=== PATIENT | male | born 1940 | race Caucasian/White ===

== ENCOUNTER 2020-01-21 13:28 | Inpatient (IN) ==
[2020-01-21] MEDS ORDERED: NORMAL SALINE 1,000 ML IV ONE (13:59)
--- NOTE | 2020-01-21 14:10 | ERNOTE ---
Trauma/Assault HPI - Narrative Date of Service: 01/21/20 - General Stated Complaint: fall Time Seen by Provider: 01/21/20 13:43 Source: patient Exam Limitations: no limitations, other - poor historian - Immun/Allergies/Home Medications Immunizations: IMMUNIZATION HX Immunizations Up to Date Yes Allergies/Adverse Reactions: Allergies No Known Allergies Allergy (Unverified 01/21/20 13:44) - History of Present Illness Narrative: Patient presents to the ED for right leg pain after a fall. He missed the 5th step on a set of stairs and went right down on his right knee. Immediate pain right thigh. No head injury. No neck pain. No CP or SOB. No syncope or LOC or head injury. Mild right elbow pain. No focal weakness. Has not had anything like this before. Pain worse with movement. Location Occurred: Reports: other - stairs Pain Location: Reports: other - right thigh Method of Injury: Reports: fall Modifying Factors - (Improves): Reports: rest Modifying Factors - (Worsens): Reports: movement Loss of Consciousness: Reports: no loss of consciousness Associated Symptoms - Trauma: Reports: trouble walking. Denies: headache, lightheadedness, chest pain, abdominal pain Review of Systems - Review of Systems Constitutional: Absent: fever EYE: Present: no symptoms reported ENT: Absent: sore throat Respiratory: Present: other - on 3L NC chronically Cardiology: Absent: chest pain Gastrointestinal/Abdominal: Absent: abdominal pain Genitourinary: Absent: dysuria Musculoskeletal: Present: See HPI Neurological: Present: other - pain limits this but no focal weakness All Other Systems: All systems neg except as marked Medical History (Last Reviewed 01/21/20 @ 14:06 by Lopez Tang MD) History of COPD Poor historian Surgical History: Surgical History (Last Reviewed 01/21/20 @ 14:06 by Lopez Tang MD) Surgical history unknown Family History: Family History (Last Reviewed 01/21/20 @ 14:06 by Lopez Tang MD) Other No pertinent family history Social History: (Last Reviewed 01/21/20 @ 14:06 by Lopez Tang MD) Social History: Service: Yes Physical Exam - Physical Exam General Appearance: Present: alert, no apparent distress Head Exam: Present: normal inspection, no evidence of injury. Absent: Land's Sign, raccoon eyes Eye Exam: Normal inspection: bilateral, PERRL: bilateral Ears, Nose, Throat: Present: normal ENT inspection Neck: Present: normal inspection, nontender, other - absolutely no tendenress posterior C-spine. Absent: tender posterior midline Respiratory: Present: no respiratory distress, normal breath sounds, no accessory muscle use, lungs clear. Absent: wheezing Cardiovascular/Chest: Present: regular rate, rhythm, normal peripheral pulses Gastrointestinal/Abdominal: Present: normal bowel sounds, nontender, nondistended, soft Back Exam: Absent: vertebral tenderness Extremity Exam: Present: other - Tendenress right hip and thigh. Abrasion left knee. Mild tenderness right elbow with skin tear. Full ROM. No other point bone tenderness. Neurological Exam: Present: alert, no motor/sensory deficits, other - pain limits exam, no acute focal motor tenderness. Skin Exam: Present: normal color, warm/dry, other - abrasoins/skin tear as no virgil. Progress - Results and Orders Patient's Lab Results:: I have reviewed the patient's lab results. - Vital Signs Patient's Vital Signs:: I have reviewed the patient's vital signs. Vital Signs: Vital Signs 01/21/20 13:35 Temperature 37.2 C Pulse Rate 90 Respiratory Rate 16 Blood Pressure 142/49 O2 Sat by Pulse Oximetry 92 L - EKG EKG #1 EKG read: Interp. by az EKG Comments: Sinus tachycardia rate 101. Non-specific ST/T wave changes , no STEMI. - X-Ray X-Ray #1 X-Ray: chest Interpretation: Interp. by me X-ray Comments: I personally reviewed CXR image as well as official radiology report. X-Ray #2 X-Ray: femur Interpretation: Interp. by me X-ray Comments: I personally reviewed femur image as well as official radiology report. X-Ray #3 X-Ray: elbow Interpretation: Interp. by me X-ray Comments: I personally reviewed elbow images as well as official radiology report. - CT/Ultrasound CT/Ultrasound Narrative: I reviewed official radiology report for CT head and chest - Progress/Reassessment Chief Complaint: Fall Progress Note-Subjective: 01/21/20 17:14 Patient had some confusion, unclear chronicity, with the fall, head CT obtained. He also had incerased oxygen requirement and had increased resp rate, after discussion with Dr Raymundo, he will have CTA chest as well to r/o PE or fat embolism. 01/21/20 18:38 Dr Raymundo saw the patient in the ED. There was question at that time if transfer to [facility] at request of was going to happen. I spoke to the patient's . They live in [place] and for convenience were wondering about transfer to [place]. She had heard the Dr Stevens was a very good orthopedist and was more amenable to surgery here then skilled in [place] if possible. Patient had some increased WOB after morphine but no allergic symptoms. CT shows no PE or fat embolism of size but findings c/w interstitial edema. BNP wnl. Bipap was given to ease WOB. Departure Clinical Impression: Fall, Hip fracture, right, Elbow injury, Abrasion, On home oxygen therapy, COPD (chronic obstructive pulmonary disease) - Departure Disposition: Still a patient Condition: Fair Critical Care Time - Critical Care Critical Time Spent:: No
[2020-01-21 14:28] LABS: Hemoglobin 14.1 gm/dL (13.5-18.0); Mean Cell Volume 96.6 fl (78-100); Mean Corpuscular Hemoglobin 31.7 pg (27-31); Mean Corpuscular Hgb Conc 32.8 g/dl (32-36); Mean Platelet Volume 10.2 fl (8-11.3); Neutrophil # 6.2 K/mm3 (1.3-6.0); Neutrophil % 80.7 % (42-75.0); Platelet Count 280 K/mm3 (150-450); Red Blood Count 4.45 M/mm3 (4.7-6.0); Red Cell Distribution Width 12.9 % (11.5-14.0); White Blood Count 7.7 K/mm3 (4.0-10.5)
[2020-01-21 14:50] LABS: Prothrombin Time (Patient) 10.6 Seconds (9.1-10.7)
[2020-01-21 14:51] LABS: Albumin * 3.4 gm/dl (3.4-5.0); Anion Gap 6.9 mmol/L (6.8-13.8); Ca. Corrected For Albumin 9.3 mg/dL (8.4-10.2); Calcium * 9.1 mg/dL (7.9-10.9); Carbon Dioxide 31.7 mmol/L (24-32.6); INR 1.07 INR (0.92-1.08); Partial Thrombolplastin Time 27.5 Seconds (24-32); Potassium 3.6 mmol/L (3.4-4.6); Total Protein 6.8 gm/dL (6.2-8.2)
[2020-01-21 16:31] LABS: Urine Bilirubin 1 mg/dl (NEGATIVE); Urine Blood Negative /ul (NEGATIVE); Urine Ketone Negative (NEGATIVE); Urine Nitrite Negative (NEGATIVE); Urine Protein Negative (NEGATIVE); Urine Specific Gravity 1.025 SP.GR. (1.005-1.030); Urine Urobilinogen Normal (NORMAL)
[2020-01-21] MEDS ORDERED: MORPHINE SULFATE 2 MG/ML DISP.SYRIN IV ONE (16:48)
[2020-01-21 17:03] LABS: Urine Appearance Clear (CLEAR); Urine Color Dark Yellow; Urine RBC TRACE /hpf (0-5); Urine WBC TRACE /hpf (0-5)
[2020-01-21 17:04] LABS: Urine Bacteria 1+; Urine Mucus Few - 1+
[2020-01-21] MEDS ORDERED: MORPHINE SULFATE 4 MG/ML SYRG IV PRN (22:27)
[2020-01-21] MEDS ORDERED: ONDANSETRON HCL/PF 2 MG/ML VIAL IV PRN (22:28)
--- NOTE | 2020-01-21 22:47 | HP ---
Chief Complaint - Chief Complaint Date of Service: 01/21/20 Time of Service: 18:00 Chief Complaint: fall, hip pain History of Present Illness: Kali is an 79 yo male with Chronic respiratory failure secondary to COPD on 3lpm of continuous oxygen. He was walking on stairs and tripped on the 5th one, landing on his right knee and immediately having right hip pain. He was brought to the [facility] ER where he was found to have a right femur fracture. Imaging of right elbow, chest, and head showed no acute changes. On his usual 3lpm of oxygen he was having hypoxia and he was increased to bipap. CT of chest showed no pulmonary embolism, no infiltrates, but potential pulmonary congestion. COVID was negative. He reports taking nebulizers at home and prior to the fall he was doing well medically. He denies shortness of breath, cough, o r fever. No chest pain, dizziness, or lightheadness. He recalls catching his foot on the stairs and tripping. Medical History (Last Reviewed 01/22/20 @ 09:03 by Mateo Rangel CRNA) History of COPD Poor historian Surgical History: Surgical History (Last Reviewed 01/22/20 @ 09:03 by Mateo Rangel CRNA) Hx of appendectomy Hx of hernia repair Family History: Family History (Last Reviewed 01/22/20 @ 09:03 by Mateo Rangel CRNA) Mother Diabetes CHF (congestive heart failure) Father Diabetes Other No pertinent family history Social History: (Last Updated 01/21/20 @ 20:58 by Salima Eagle RN) Social History: adopted: No foster care: No half-way: No Marital status: household members: spouse Service: Yes Tobacco: Smoking Status: Former smoker tobacco type: cigarettes Smoking End Date: 02/11/11 Smoking risk assessment performed?: No Alcohol: alcohol intake: former Substance Use: substance use type: does not use Review Of Systems (GEN) - Review of Systems Generalized/Overall Review: Absent: Weakness, Chills, Fever, Fatigue EENTM: Present: No Symptoms Reported Respiratory: Absent: Cough, Shortness of Breath, Wheezing Cardiac: Absent: Chest Pain, Edema, Palpitations Abdominal: Absent: Nausea, Vomiting Genitourinary: Present: No Symptoms Reported Musculoskeletal: Present: Joint Pain Neurological: Present: No Symptoms Reported Skin: Present: No Symptoms Reported Endocrine: Present: No Symptoms Reported Immunizations: IMMUNIZATION HX Immunizations Up to Date Yes Allergies/Adverse Reactions: Allergies Allergy/AdvReac Type Severity Reaction Status Date / Time No Known Allergies Allergy Unverified 01/21/20 13:44 Home Medications: HOME MEDICATIONS Atorvastatin Calcium [Lipitor] 20 mg PO DAILY 01/22/20 [Last Taken Unknown] Cetirizine HCl 10 mg PO DAILY PRN 01/22/20 [Last Taken Unknown] Fluticasone/Vilanterol [Breo Ellipta 200-25 Mcg INH] 1 ea IH DAILY 01/22/20 [Last Taken Unknown] Montelukast Sodium 10 mg PO HS 01/22/20 [Last Taken Unknown] Nystatin [Mycostatin (Nystatin) Cream] 30 gm TP BID 01/22/20 [Last Taken Unknown] Triamcinolone Acetonide 15 gm TP BID 01/22/20 [Last Taken Unknown] Umeclidinium [place] [Incruse Ellipta] 62.5 mcg IH DAILY 01/22/20 [Last Taken Unknown] Exam - Exam Vital Signs: Vital Signs - Last Taken Temp 37.5 C 01/21/20 20:06 Pulse 97 01/21/20 21:43 Resp 25 H 01/21/20 21:43 BP 114/62 01/21/20 20:06 Pulse Ox 92 L 01/21/20 21:43 Constitutional: Present: Alert, Oriented x3, Cooperative ENT Exam: Present: hearing grossly normal Eye Exam: bilateral eye: normal inspection Respiratory: Present: lungs clear, no respiratory distress Cardiovascular/Chest: Present: regular rate, rhythm, no murmur Peripheral Pulses: radial (R): 2+, radial (L): 2+ Abdomen: Present: Normal bowel sounds, soft, nontender, nondistended Extremity: Absent: lower extremity edema Skin Exam: Present: normal color, warm/dry, no cyanosis Neurologic: Present: alert, normal mood/affect, oriented x 3, other - Soft spoken and a little hard to hear, but he carries appropriate conversation Appearance: Present: appropriate appearance, appropriate insight Eye contact: Present: cooperative, good eye contact Thoughts: Present: normal thought pattern, no apparent hallucination Diagnostic Studies: Abnormal Lab Results 01/21/20 01/21/20 01/21/20 Range/Units 14:21 16:12 16:45 RBC 4.45 L (4.7-6.0) M/mm3 MCH 31.7 H (27-31) pg Neutrophils % 80.7 H (42-75.0) % Lymphocytes % 8.8 L (20-51) % Neutrophils # 6.2 H (1.3-6.0) K/mm3 Lymphocytes # 0.68 L (1.5-3.5) k/mm3 pCO2 54.7 H (35.0-48.0) mmHg pO2 56.9 L (83.0-108.0) mmHg HCO3 28.7 H (21.0-28.0) mmol/L Total CO2 30.4 H (19.0-24.0) mmol/L ABG pH 7.34 L (7.35-7.45) ABG O2 Sat (Measured) 87.4 L (94.0-98.0) % Urine Bilirubin 1 H (NEGATIVE) mg/dl Urine Bacteria 1+ H (NONE) Urine Mucus Few - 1+ H (NONE) Laboratory Results WBC 7.7 K/mm3 (4.0-10.5) 01/21/20 14:21 RBC 4.45 M/mm3 (4.7-6.0) L 01/21/20 14:21 Hgb 14.1 gm/dL (13.5-18.0) 01/21/20 14:21 Hct 43.0 % (42.0-52.0) 01/21/20 14:21 MCV 96.6 fl (78-100) 01/21/20 14:21 MCH 31.7 pg (27-31) H 01/21/20 14:21 MCHC 32.8 g/dl (32-36) 01/21/20 14:21 RDW 12.9 % (11.5-14.0) 01/21/20 14:21 Plt Count 280 K/mm3 (150-450) 01/21/20 14:21 MPV 10.2 fl (8-11.3) 01/21/20 14: Immature Gran % (Auto) 0.30 % (0.001-0.429) 01/21/20 14:21 Immature Gran # (Auto) 0.02 K/mm3 (0.000-0.0310) 01/21/20 14:21 Neutrophils % 80.7 % (42-75.0) H 01/21/20 14:21 Lymphocytes % 8.8 % (20-51) L 01/21/20 14:21 Monocytes % 7.1 % (0.0-9) 01/21/20 14:21 Eosinophils % 2.7 % (0.0-3.0) 01/21/20 14:21 Basophils % 0.4 % (0.0-1.0) 01/21/20 14:21 Nucleated RBC % 0.0 k/mm3 (0-1) 01/21/20 14:21 Neutrophils # 6.2 K/mm3 (1.3-6.0) H 01/21/20 14:21 Lymphocytes # 0.68 k/mm3 (1.5-3.5) L 01/21/20 14:21 Monocytes # 0.6 k/mm3 (0.0-1.0) 01/21/20 14:21 Eosinophils # 0.2 k/mm3 (0.0-0.7) 01/21/20 14:21 Absolute Basophils 0.0 k/mm3 (0.0-0.1) 01/21/20 14:21 PT 10.6 Seconds (9.1-10.7) 01/21/20 14:21 INR (Anticoag Therapy) 1.07 INR (0.92-1.08) 01/21/20 14:21 PTT ([place]) 27.5 Seconds (24-32) 01/21/20 14:21 pCO2 54.7 mmHg (35.0-48.0) H 01/21/20 16:45 pO2 56.9 mmHg (83.0-108.0) L 01/21/20 16:45 HCO3 28.7 mmol/L (21.0-28.0) H 01/21/20 16:45 Total CO2 30.4 mmol/L (19.0-24.0) H 01/21/20 16:45 Base Excess 1.6 mmol/L (-2.0-3.0) 01/21/20 16:45 ABG pH 7.34 (7.35-7.45) L 01/21/20 16:45 ABG O2 Sat (Measured) 87.4 % (94.0-98.0) L 01/21/20 16:45 Sodium 141 mmol/L (132-142) 01/21/20 14:21 Plasma Sodium 141 mmol/L (130-142) 01/21/20 14:21 Potassium 3.6 mmol/L (3.4-4.6) 01/21/20 14:21 Chloride 106 mmol/L (97-106) 01/21/20 14:21 Carbon Dioxide 31.7 mmol/L (24-32.6) 01/21/20 14:21 Anion Gap 6.9 mmol/L (6.8-13.8) 01/21/20 14:21 BUN 12 mg/dL (6-23) 01/21/20 14:21 Creatinine 0.86 mg/dL (0.4-1.4) 01/21/20 14:21 Est GFR (Non-Af Amer) 91 mL/min (60-130) 01/21/20 14:21 BUN/Creatinine Ratio 14.0 (9.0-21.6) 01/21/20 14:21 Random Glucose 103 mg/dL (70-110) 01/21/20 14:21 Calcium 9.1 mg/dL (7.9-10.9) 01/21/20 14:21 Calcium Adj for Albumin 9.3 mg/dL (8.4-10.2) 01/21/20 14:21 Total Bilirubin 1.0 mg/dL (0.0-1.1) 01/21/20 14:21 AST 23 U/L (0-48) 01/21/20 14:21 ALT 25 U/L (19-67) 01/21/20 14:21 Alkaline Phosphatase 143 U/L (50-170) 01/21/20 14:21 Troponin I Less than 0.017 ng/mL (0.00-0.10) 01/21/20 14:20 B-Natriuretic Peptide 273 pg/mL (5-650) 01/21/20 14:20 Total Protein 6.8 gm/dL (6.2-8.2) 01/21/20 14:21 Albumin 3.4 gm/dl (3.4-5.0) 01/21/20 14:21 Urine Color Dark yellow 01/21/20 16:12 Urine Appearance Clear (CLEAR) 01/21/20 16:12 Urine pH 6.0 pH (5.0-7.0) 01/21/20 16:12 Ur Specific [place] 1.025 SP.GR. (1.005-1.030) 01/21/20 16:12 Urine Protein Negative mg/dL (NEGATIVE) 01/21/20 16:12 Urine Glucose (UA) Negative mg/dL (NEGATIVE) 01/21/20 16:12 Urine Ketones Negative mg/dL (NEGATIVE) 01/21/20 16:12 Urine Blood Negative /ul (NEGATIVE) 01/21/20 16:12 Urine Nitrate Negative (NEGATIVE) 01/21/20 16:12 Urine Bilirubin 1 mg/dl (NEGATIVE) H 01/21/20 16:12 Urine Ictotest Negative (NEGATIVE) 01/21/20 16:12 Urine Urobilinogen Normal EU/dl (NORMAL) 01/21/20 16:12 Ur Leukocyte Esterase Negative /ul (NEGATIVE) 01/21/20 16:12 Urine RBC Trace /hpf (0-5) 01/21/20 16:12 Urine WBC Trace /hpf (0-5) 01/21/20 16:12 Ur Epithelial Cells Trace /hpf (0-5) 01/21/20 16:12 Urine Bacteria 1+ (NONE) H 01/21/20 16:12 Urine Mucus Few - 1+ (NONE) H 01/21/20 16:12 Urine Culture Comments No culture indicated 01/21/20 16:12 SARS-CoV-2 (PCR) Not detected (NotDetected) 01/21/20 15:00 Assessment/Plan - Narrative Narrative: Kali is an 79 yo male with right hip fracture. Fracture was discussed with ortho who reviewed the fracture and recommend surgery. From a pulmonary standpoint he is at a higher risk for surgery due to his COPD and chronic respiratory failure. Chest xray and Chest CT show no acute changes. He is requiring more oxygen then he reportedly uses at home. This may be from atelectasis. Will continue bipap overnight and wean to home oxygen levels in the morning. May need duoneb treatments. He is alert and oriented, although difficult to hear at times he has appropriate conversation. Discussing his case with surgery he will not need general anesthesia, with this I agree, as he may be high risk coming off of a vent. As this will not be used I believe he is medically clear for surgery. I believe the patient understands the risks and is in agreement with surgery. - Assessment/Plan (1) Hip fracture, right Problem: Acute Qualifiers: Encounter type: initial encounter Fracture type: closed Qualified Code (s): S72.001A - Fracture of unspecified part of neck of right femur, initial encounter for closed fracture (2) Acute and chronic respiratory failure Problem: Acute Qualifiers: Respiratory failure complication: hypoxia Qualified Code(s): J96.21 - Acute and chronic respiratory failure with hypoxia (3) Fall Problem: Acute (4) COPD (chronic obstructive pulmonary disease) Problem: Chronic Qualifiers: COPD type: emphysema Emphysema type: unspecified Qualified Code(s): J43.9 - Emphysema, unspecified
[2020-01-22 05:53] LABS: Hematocrit 48.4 % (42.0-52.0); Hemoglobin 15.7 gm/dL (13.5-18.0); Mean Cell Volume 98.2 fl (78-100); Mean Corpuscular Hemoglobin 31.8 pg (27-31); Mean Corpuscular Hgb Conc 32.4 g/dl (32-36); Mean Platelet Volume 11.4 fl (8-11.3); Neutrophil # 17.3 K/mm3 (1.3-6.0); Neutrophil % 87.5 % (42-75.0); Platelet Count 200 K/mm3 (150-450); Red Blood Count 4.93 M/mm3 (4.7-6.0); Red Cell Distribution Width 12.9 % (11.5-14.0); White Blood Count 19.7 K/mm3 (4.0-10.5)
[2020-01-22 06:12] LABS: Albumin * 3.2 gm/dl (3.4-5.0); Anion Gap 8.6 mmol/L (6.8-13.8); Bilirubin, Total 1.4 mg/dL (0.0-1.1); Ca. Corrected For Albumin 9.3 mg/dL (8.4-10.2); Carbon Dioxide 30.4 mmol/L (24-32.6)
[2020-01-22] MEDS ORDERED: MORPHINE SULFATE 2 MG/ML DISP.SYRIN IV PRN (07:15)
[2020-01-22] MEDS ORDERED: FUROSEMIDE 10 MG/ML VIAL IV ONE (07:27)
[2020-01-22] MEDS ORDERED: ALBUTEROL SULFATE/IPRATROPIUM 3 ML NEBU IH PRN (08:57)
--- NOTE | 2020-01-22 09:07 | ANES ---
Anesthesia Pre Procedure Eval Vitals/Labs: Last Vital Signs Temp 36.8 C 01/22/20 06:12 Pulse 92 01/22/20 07:51 Resp 18 01/22/20 06:12 BP 140/65 01/22/20 07:51 Pulse Ox 91 L 01/22/20 08:00 Allergies/Adverse Reactions: Allergies Allergy/AdvReac Type Severity Reaction Status Date / Time No Known Allergies Allergy Unverified 01/21/20 13:44 - Planned Procedure Planned Procedure: Hip fracture Medication List Reviewed:: Yes Allergies Verified: Yes Medical History (Last Reviewed 01/22/20 @ 09:03 by Mateo Rangel CRNA) History of COPD Poor historian Surgical History (Last Reviewed 01/22/20 @ 09:03 by Mateo Rangel CRNA) Hx of appendectomy Hx of hernia repair Family History (Last Reviewed 01/22/20 @ 09:03 by Mateo Rangel CRNA) Mother Diabetes CHF (congestive heart failure) Father Diabetes Other No pertinent family history - Family Anesthesia History Family History:: no untoward family reactions to anesthesia, no familial bleeding tendencies, no family history of clotting disorders, no family history of premature - Airway/Neck/Teeth Denture Type: Full upper Neck Exam: full range of motion Mallampatti Score: 3 Thyromental (T-M) distance: > 6 cm Mandibulo Hyoid distance: > 3 cm - Respiratory Respiratory History: COPD Respiratory Physical: rhonchi Smoking Status: Former smoker Sleep Apnea currently treated: No Sleep Apnea by current assessment: Yes - by pt description - Cardiovascular Cardiac History: hyperlipidemia Tolerate Activity: Poor Heart Sounds: S1 & S2, Regular - Gastrointestinal NPO since: 2400 - Anesthesia Assessment and Plan ASA Class: PS, IV - Creatanine good, COPD apparent severe with SaO2 in 80s on supplimental O2, somewhat confused since hospitalization. Anesthesia Type Plan: Spinal
[2020-01-22] MEDS ORDERED: TRIAMCINOLONE ACETONIDE 15 APPL TUBE TP PRN (09:18)
[2020-01-22] MEDS ORDERED: LORATADINE 10 MG TABLET PO PRN (09:25)
[2020-01-22] MEDS: ALBUTEROL SULFATE/IPRATROPIUM 3 ML NEBU IH SCH ×4 (10:03→23:59)
[2020-01-22] MEDS ORDERED: BUPIVACAINE HCL/PF 10 ML VIAL ONE (12:08)
[2020-01-22] MEDS ORDERED: MIDAZOLAM HCL/PF 1 MG/ML VIAL ONE (12:08)
[2020-01-22] MEDS ORDERED: PROPOFOL VIAL IV ONE (12:08)
[2020-01-22] MEDS ORDERED: ISOPROPYL ALCOHOL 480 APPL BTL MC ONE (12:42)
[2020-01-22] MEDS ORDERED: ACETAMINOPHEN 1,000 MG/100 ML BTL IV PRN (12:42)
[2020-01-22] MEDS ORDERED: ceFAZolin SODIUM 1 GM VIAL ONE (12:43)
--- NOTE | 2020-01-22 12:45 | CONS ---
[facility] - General Date of Service: 01/22/20 Narrative: Mr. Green is an 79-year-old gentleman who fell resulting in injury to his right hip. He is brought to the emergency department found to have a nondisplaced right femoral neck fracture. He was admitted for preoperative evaluation. Last night he did have some increased oxygen demands and is being evaluated by medicine to determine if he is safe to undergo surgical intervention. He has a small abrasion to his elbow but denies any other significant pain. He is resting in bed with a BiPAP in place. Source: patient, RN/MD Exam Limitations: clinical condition - History of Present Illness Timing/Duration: 24 hours Severity: mild Modifying Factors - (Worsens): Reports: movement Modifying Factors - (Improves): Reports: immobilization Associated Symptoms: denies symptoms Allergies/Adverse Reactions: Allergies No Known Allergies Allergy (Unverified 01/21/20 13:44) Home Medications: Home Medications Medication Instructions Recorded Last Taken Atorvastatin Calcium [Lipitor] 20 mg PO DAILY 01/22/20 Unknown Cetirizine HCl 10 mg PO DAILY PRN 01/22/20 Unknown Fluticasone/Vilanterol [Breo 1 ea IH DAILY 01/22/20 Unknown Ellipta 200-25 Mcg INH] Montelukast Sodium 10 mg PO HS 01/22/20 Unknown Nystatin [Mycostatin (Nystatin) 30 gm TP BID 01/22/20 Unknown Cream] Triamcinolone Acetonide 15 gm TP BID 01/22/20 Unknown Umeclidinium [place] [Incruse 62.5 mcg IH DAILY 01/22/20 Unknown Ellipta] Medications - Medications Current Medications: Current Medications Albuterol/Ipratropium (Albuterol Sulfate/Ipratropium 3 Ml Nebu) 3 ml IH Q6HRT KIM Stop: 02/21/20 09:01 Last Admin: 01/22/20 12:31 Dose: 3 ml Documented by: Review of Systems - Review of Systems Narrative: Negative other than above Physical Examination - Exam Narrative: He is arousable and follows commands and answers questions appropriately Right lower extremity: Palpable dorsalis pedis pulse, sensation intact light touch, he is able to flex and extend his ankle. No skin breakdown at the hip. Mild pain with any hip range of motion. Thigh is soft. Vital Signs: Vital Signs - Last Taken Temp 36.8 C 01/22/20 06:12 Pulse 102 H 01/22/20 12:31 Resp 22 H 01/22/20 12:31 BP 140/65 01/22/20 07:51 Pulse Ox 92 L 01/22/20 12:31 O2 Oxygen Delivery Method Nasal Cannula Constitutional: Present: Alert - Results and Findings: Narrative: 2 views of right femur: Nondisplaced nonimpacted femoral neck fracture Lab/Microbiology results last 24 hrs: Abnormal/Pending Laboratory Last 24 HRS 01/22/20 01/22/20 01/22/20 09:35 05:10 05:10 WBC 19.7 H D RBC MCH 31.8 H MPV 11.4 H Immature Gran # (Auto) 0.06 H Neutrophils % 87.5 H Lymphocytes % 4.8 L Neutrophils # 17.3 H Lymphocytes # 0.95 L pCO2 pO2 55.3 L HCO3 Total CO2 26.2 H ABG pH ABG O2 Sat (Measured) 89.9 L Random Glucose 137 H D Total Bilirubin 1.4 H Albumin 3.2 L Urine Bilirubin Urine Bacteria Urine Mucus 01/21/20 01/21/20 01/21/20 16:45 16:12 14:21 WBC RBC 4.45 L MCH 31.7 H MPV Immature Gran # (Auto) Neutrophils % 80.7 H Lymphocytes % 8.8 L Neutrophils # 6.2 H Lymphocytes # 0.68 L pCO2 54.7 H pO2 56.9 L HCO3 28.7 H Total CO2 30.4 H ABG pH 7.34 L ABG O2 Sat (Measured) 87.4 L Random Glucose Total Bilirubin Albumin Urine Bilirubin 1 H Urine Bacteria 1+ H Urine Mucus Few - 1+ H - Assessments/Findings (1) Nondisplaced fracture of neck of right femur Diagnosis(s): We discussed his injury and plan for treatment. Consent will be obtained. He will need 6 weeks of DVT prophylaxis postoperatively. If he is medically sound for surgery we will plan to proceed today Problem: Acute
[2020-01-22] MEDS ORDERED: RINGER'S SOLUTION,LACTATED 1,000 ML IV ONE (13:20)
[2020-01-22] MEDS ORDERED: BUPIVACAINE HCL 50 ML VIAL IJ ONE ×3 (14:16→14:51)
[2020-01-22] MEDS ORDERED: MAG HYDROX/ALUMINUM HYD/SIMETH 30 ML UDC PO PRN (14:38)
[2020-01-22] MEDS ORDERED: HYDROcodone/ACETAMINOPHEN 1 EACH TABLET PO PRN (14:38)
[2020-01-22] MEDS ORDERED: MAGNESIUM HYDROXIDE 30 ML UDC PO PRN (14:38)
--- NOTE | 2020-01-22 14:38 | OR ---
Operative Report - Dictated Report Narrative: Date: 01/22/2020 Surgeon: Emilio Stevens M.D. Mica Miner Blasting: Allan Ojeda PA-C Preoperative diagnosis: Closed right nondisplaced femoral neck fracture Postoperative diagnosis:Closed right nondisplaced femoral neck fracture Operations and procedures: 1. Percutaneous fixation right nondisplaced femoral neck fracture 2. Intraoperative interpretation of radiographs Anesthesia: Spinal plus local Specimens: None Estimated blood loss: Minimal Retained implants: [employer] 7.0 millimeter 32 millimeter threads cannulated screws 100x2, 95 millimeter lengths Complications: None Indications for procedure: Mr. Green is an 79-year-old gentleman who injured the right hip after ground-level fall. He was admitted to the hospital after being evaluated in the emergency department. Once the medical provider felt that they were stable for surgical treatment, the risks and benefits alternatives were discussed. The risks of , blood clots, bleeding, infection, nerve/tendon/blood vessel injury, malunion, nonunion, failure of implants, painful implants, arthrosis, and need for additional procedures were discussed. The extremity was marked and consent was obtained on the floor. Procedure: After marking the operative extremity on the floor, the patient was taken to the operating room. A timeout was performed. IV antibiotics consisting of Ancef were administered. A spinal anesthetic was induced by anesthesia, and the patient was then placed onto a fracture table with a well-padded perineal post. The nonoperative leg was placed in a well-padded traction boot in slight extension without any traction with an SCD on the leg. The operative leg was placed in a well-padded traction boot. No traction or manipulation was performed. Preliminary images were attained utilizing C-arm in both the AP and lateral views. This confirmed that we had obtained adequate visualization of the fracture as well as reduction. Next the hip was then prepped and draped in a standard sterile fashion. Next three guidewires were placed percutaneously in an inverted triangle fashion. The inferior screws placed centered on the lateral view and along the inferior neck cortex on the AP view. The 2 superior screws were placed along the anterior and posterior cortex on the lateral view and along the inferior portion of the superior cortex on the AP in order to obtain as long of screws as possible. This was done with a starting point above the level of the lesser trochanter. C-arm was utilized in order to confirm the placement and to ensure that the tips of the guidewires were not penetrating the joint. The screws were then measured, the outer cortex was drilled, and the 3 screws were placed securing them to the bone on the lateral aspect providing fixation across the fracture. C-arm was again utilized to ensure that the screws were not into the joint and that they stabilized the fracture. The wounds were then thoroughly irrigated. Final images were obtained. The hip was placed through range of motion and showed no crepitance. The subcutaneous tissue was closed with 3-0 Vicryl, and the skin was closed with avtar. Sterile dressings of Xeroform, 4 x 4, and Tegaderm were applied. All sponge, sharp, and instrument counts were correct prior to closing the wounds. The patient was then awoken and transferred to the postanesthesia care unit in stable condition.
--- NOTE | 2020-01-22 15:00 | ANES ---
Post Anesthesia Discharge - Transfer of Care Transfer of Care handoff given to nurse: Yes - Discharge from PACU Discharge from PACU when meets criteria: Yes - Comfortable, sleepy
--- NOTE | 2020-01-22 16:28 | ANES ---
Post Anesthesia Assessment - Vital Signs Vitals: Last Vital Signs Temp 36.5 C 01/22/20 16:21 Pulse 84 01/22/20 16:21 Resp 18 01/22/20 16:21 BP 115/62 01/22/20 16:21 Pulse Ox 97 01/22/20 16:21 Airway Patency: Normal - Mental Status Level Of Consciousness: Awake, Follows Commands - Pain Level Pain Score: 0 - N/V Assessment Nausea/Vomiting Presence: None Dehydration:: No
[2020-01-22] MEDS: ceFAZolin SODIUM 1 GM in DEXTROSE 5 % IN WATER 100 ML IV SCH ×4 (17:10→22:38)
[2020-01-22] MEDS: MONTELUKAST SODIUM 10 MG TABLET PO SCH (20:14)
[2020-01-22] MEDS: FLUTICASONE PROPION/SALMETEROL 14 PUFF DISK.W.DEV IH SCH (20:14)
[2020-01-22] MEDS: SENNOSIDES/DOCUSATE SODIUM 1 TAB TABLET PO SCH (20:14)
[2020-01-22] MEDS: NYSTATIN 30 APPL TUBE TP SCH (20:14)
--- NOTE | 2020-01-22 23:52 | PN ---
Subjective - Date and Time Seen Date: 01/22/20 Time: 12:00 Subjective Narrative: Kali is a little hard to hear, but when able to hear what he says appears very appropriate. He is able to tell me his name and where he is. He knows where he lives and who his regular Dr. is. He explained his fall and reports prior to falling he was feeling well in his usual state of health. He denies chest pain or shortness of breath beyond his usual. His only concern at this time is right hip pain with movement. He reports if he lays still his pain is well controlled. Nursing does report that he does get confused at times and has removed his oxygen. Objective - Vitals Vitals: Last Vital Signs Temp 36.5 C 01/22/20 17:37 Pulse 92 01/22/20 23:02 Resp 20 01/22/20 18:23 BP 132/53 01/22/20 23:02 Pulse Ox 92 L 01/22/20 23:02 - Abnormal Lab Findings Abnormal Lab Findings: Abnormal Lab Results 01/22/20 01/22/20 01/22/20 Range/Units 05:10 05:10 09:35 WBC 19.7 H D (4.0-10.5) K/mm3 MCH 31.8 H (27-31) pg MPV 11.4 H (8-11.3) fl Immature Gran # (Auto) 0.06 H (0.000-0.0310) K/mm3 Neutrophils % 87.5 H (42-75.0) % Lymphocytes % 4.8 L (20-51) % Neutrophils # 17.3 H (1.3-6.0) K/mm3 Lymphocytes # 0.95 L (1.5-3.5) k/mm3 pO2 55.3 L (83.0-108.0) mmHg Total CO2 26.2 H (19.0-24.0) mmol/L ABG O2 Sat (Measured) 89.9 L (94.0-98.0) % Random Glucose 137 H D (70-110) mg/dL Total Bilirubin 1.4 H (0.0-1.1) mg/dL Albumin 3.2 L (3.4-5.0) gm/dl - Exam Constitutional: Present: Alert, Oriented x3, Cooperative, No distress Respiratory: Present: decreased breath sounds Cardiovascular/Chest: Present: regular rate, rhythm, no edema, no murmur Abdomen: Present: Normal bowel sounds, soft, nontender, nondistended Neurologic: Present: alert, normal mood/affect, oriented x 3, other - speech is difficult to understand but reports from his are that this is fairly normal Appearance: Present: appropriate insight Cauti Physician Documentation - Urinary Catheter Management Coude Date of Insertion: 01/22/20 Time of Insertion: 09:35 Assessment/Plan Plan Narrative: Kali will have surgery today to repair his right femur fracture. This will be done with spinal. His COPD and chronic respiratory failure put him at higher risk of needing ventilator management if he were to undergo general anesthesia. He has been using more oxygen than his baseline but I believe this to be related to pain medication vs atelectasis. Pneumonia could be a consideration but he has not had cough or worsening shortness of breath and he felt well prior to his fall. There is no reports of aspiration, choking, or loss of consciousness that would increase his risk of pneumonia. If he had a pneumonia present it would be coincidence that he just happened to also have the fall as this was tripping related. The chances that he had a pneumonia and tripped and broke his hip are low. I believe his leukocytosis is also related to his fracture. If there is mounting evidence for pneumonia then I would consider treating with antibiotics. However at this time I believe he is ok to have surgery, will treat with duonebs, and adjust oxygen as needed. Will work on ambulation and cornet after surgery as I believe atelectasis is the most likely cause to his symptoms. - Problems/Diagnosis (1) Hip fracture, right Problem: Acute Qualifiers: Encounter type: initial encounter Fracture type: closed Qualified Code(s): S72.001A - Fracture of unspecified part of neck of right femur, initial encounter for closed fracture (2) Acute and chronic respiratory failure Problem: Acute Qualifiers: Respiratory failure complication: hypoxia Qualified Code(s): J96.21 - Acute and chronic respiratory failure with hypoxia (3) Fall Problem: Acute (4) COPD (chronic obstructive pulmonary disease) Problem: Chronic Qualifiers: COPD type: emphysema Emphysema type: unspecified Qualified Code(s): J43.9 - Emphysema, unspecified
[2020-01-23] MEDS: ceFAZolin SODIUM 1 GM in DEXTROSE 5 % IN WATER 100 ML IV SCH ×2 (04:30)
[2020-01-23 05:21] LABS: Hematocrit 39.4 % (42.0-52.0); Hemoglobin 12.9 gm/dL (13.5-18.0); Mean Cell Volume 98.5 fl (78-100); Mean Corpuscular Hemoglobin 32.3 pg (27-31); Mean Corpuscular Hgb Conc 32.7 g/dl (32-36); Mean Platelet Volume 10.3 fl (8-11.3); Neutrophil # 14.3 K/mm3 (1.3-6.0); Platelet Count 229 K/mm3 (150-450); Red Cell Distribution Width 12.9 % (11.5-14.0); White Blood Count 16.5 K/mm3 (4.0-10.5)
[2020-01-23 05:36] LABS: Albumin * 2.7 gm/dl (3.4-5.0); Anion Gap 7.2 mmol/L (6.8-13.8); BUN/Creatinine Ratio 16.3 (9.0-21.6); Bilirubin, Total 1.1 mg/dL (0.0-1.1); Ca. Corrected For Albumin 8.9 mg/dL (8.4-10.2); Calcium * 8.2 mg/dL (7.9-10.9); Carbon Dioxide 32.3 mmol/L (24-32.6); Potassium 3.5 mmol/L (3.4-4.6); Total Protein 6.1 gm/dL (6.2-8.2)
[2020-01-23] MEDS ORDERED: ceFAZolin SODIUM 1 GM VIAL IV PRN (06:00)
[2020-01-23] MEDS: ALBUTEROL SULFATE/IPRATROPIUM 3 ML NEBU IH SCH ×3 (06:02→18:22)
[2020-01-23] MEDS: FLUTICASONE PROPION/SALMETEROL 14 PUFF DISK.W.DEV IH SCH ×2 (08:25→21:35)
[2020-01-23] MEDS: NYSTATIN 30 APPL TUBE TP SCH ×2 (08:25→21:35)
[2020-01-23] MEDS: RIVAROXABAN 20 MG TABLET PO SCH (08:26)
[2020-01-23] MEDS ORDERED: UMECLIDINIUM BROMIDE 62.5 MCG IH SCH (09:00)
--- NOTE | 2020-01-23 11:16 | PN ---
Subjective - Date and Time Seen Date: 01/23/20 Time: 11:01 Subjective Narrative: My pain is controlled for now. Objective Objective Narrative: 79-year-old male admitted for a right femoral neck fracture that occurred after a fall in his home, status post percutaneous fixation of the right femoral neck postop day #1. Patient underwent an uneventful and successful surgical repair of his femoral neck fracture. Currently he reports adequate control of his pain and denies any other symptoms. At bedside evaluation he was noted to be resting comfortably, and denied uncontrolled pain. We will continue to monitor him closely. - Review of Systems Generalized/Overall Review: Reports: No Symptoms Reported EENTM: Reports: No Symptoms Reported Respiratory: Reports: No Symptoms Reported Cardiac: Reports: No Symptoms Reported Abdominal: Reports: No Symptoms Reported Genitourinary Symptoms: Reports: No Symptoms Reported Musculoskeletal Complaints: Reports: Joint Pain Neurological: Reports: No Symptoms Reported, Pre-existing Deficit Skin: Reports: No Symptoms Reported Endocrine: Reports: No Symptoms Reported - Vitals Vitals: Last Vital Signs Temp 36.4 C 01/23/20 10:09 Pulse 107 H 01/23/20 10:09 Resp 22 H 01/23/20 10:09 BP 132/60 01/23/20 10:09 Pulse Ox 93 01/23/20 10:09 - Abnormal Lab Findings Abnormal Lab Findings: Abnormal Lab Results 01/23/20 01/23/20 Range/Units 05:20 05:20 WBC 16.5 H (4.0-10.5) K/mm3 RBC 4.00 L (4.7-6.0) M/mm3 Hgb 12.9 L (13.5-18.0) gm/dL Hct 39.4 L (42.0-52.0) % MCH 32.3 H (27-31) pg Immature Gran # (Auto) 0.05 H (0.000-0.0310) K/mm3 Neutrophils % 87.0 H (42-75.0) % Lymphocytes % 3.9 L (20-51) % Neutrophils # 14.3 H (1.3-6.0) K/mm3 Lymphocytes # 0.64 L (1.5-3.5) k/mm3 Random Glucose 327 H D (70-110) mg/dL ALT 18 L (19-67) U/L Total Protein 6.1 L (6.2-8.2) gm/dL Albumin 2.7 L (3.4-5.0) gm/dl - Exam Constitutional: Present: Alert, Oriented x3, Cooperative, Well developed, Well nourished, No distress, Elderly ENT Exam: Present: normal ENT inspection, pharynx normal, TMs normal, hard of hearing Neck: Present: non-tender, full range of motion, supple, normal inspection, trachea midline Breasts: Present: Exam deferred, Nontender Respiratory: Present: chest non-tender, lungs clear, normal breath sounds, no respiratory distress, no accessory muscle use Cardiovascular/Chest: Present: normal peripheral pulses, regular rate, rhythm, no chest tenderness, no edema, no gallop, no JVD, no murmur, no rub Abdomen: Present: Normal bowel sounds, soft, nontender, nondistended, no rebound tenderness, no hepatospenomegaly, no masses /Rectal: Present: Exam deferred Extremity: Present: normal range of motion, non-tender, no pedal edema, no calf tenderness, normal capillary refill, pelvis stable, other - Right hip covered by clean dry dressing, there are no surrounding signs of infection or bleeding. Skin Exam: Present: normal color, warm/dry, no cyanosis Lymphatic: Present: no adenopathy Neurologic: Present: telephone sterilizer II-XII nml as tested, no motor/sensory deficits, alert, normal mood/affect, oriented x 3 Appearance: Present: appropriate appearance, appropriate insight, neat, no memory impairment Eye contact: Present: cooperative, good eye contact, normal speech Thoughts: Present: normal thought pattern, no apparent hallucination Cauti Physician Documentation - Urinary Catheter Management Coude Urethral Indwelling: Yes Date of Insertion: 01/22/20 Time of Insertion: 09:35 Assessment/Plan Plan Narrative: We will continue to monitor patient, and administer pain medications and antibiotics for possible pneumonia. WBCs are trending down, will repeat labs in the morning to continue evaluating. In the meantime we will continue to follow recommendations and orders from Ortho. - Problems/Diagnosis (1) Fall Problem: Acute (2) Hip fracture, right Problem: Acute Qualifiers: Encounter type: initial encounter Fracture type: closed Qualified Code(s): S72.001A - Fracture of unspecified part of neck of right femur, initial encounter for closed fracture (3) On home oxygen therapy Problem: Acute (4) COPD (chronic obstructive pulmonary disease) Problem: Chronic Qualifiers: COPD type: emphysema Emphysema type: unspecified Qualified Code(s): J43.9 - Emphysema, unspecified (5) Pneumonia Problem: Suspected
[2020-01-23] MEDS: SENNOSIDES/DOCUSATE SODIUM 1 TAB TABLET PO SCH (21:35)
[2020-01-23] MEDS: ROSUVASTATIN CALCIUM 10 MG TABLET PO SCH (21:36)
[2020-01-23] MEDS: MONTELUKAST SODIUM 10 MG TABLET PO SCH (21:36)
[2020-01-24] MEDS: ALBUTEROL SULFATE/IPRATROPIUM 3 ML NEBU IH SCH ×4 (00:18→18:13)
[2020-01-24] MEDS ORDERED: METOPROLOL TARTRATE 1 MG/ML AMPUL IV ONE (05:40)
[2020-01-24] MEDS ORDERED: METOPROLOL TARTRATE 1 MG/ML AMPUL IV PRN (05:42)
[2020-01-24 07:35] LABS: Hemoglobin 13.4 gm/dL (13.5-18.0); Mean Cell Volume 98.3 fl (78-100); Mean Corpuscular Hemoglobin 32.1 pg (27-31); Mean Corpuscular Hgb Conc 32.7 g/dl (32-36); Neutrophil # 11.6 K/mm3 (1.3-6.0); Neutrophil % 78.2 % (42-75.0); Platelet Count 248 K/mm3 (150-450); Red Blood Count 4.17 M/mm3 (4.7-6.0); White Blood Count 14.9 K/mm3 (4.0-10.5)
[2020-01-24 08:02] LABS: Albumin * 2.8 gm/dl (3.4-5.0); Anion Gap 7.1 mmol/L (6.8-13.8); Bilirubin, Total 1.2 mg/dL (0.0-1.1); Ca. Corrected For Albumin 9.6 mg/dL (8.4-10.2); Carbon Dioxide 33.6 mmol/L (24-32.6); Potassium 3.7 mmol/L (3.4-4.6); Total Protein 6.6 gm/dL (6.2-8.2)
[2020-01-24] MEDS: ACETAMINOPHEN 500 MG TABLET PO PRN (09:10)
[2020-01-24] MEDS: RIVAROXABAN 20 MG TABLET PO SCH (09:11)
[2020-01-24] MEDS: FLUTICASONE PROPION/SALMETEROL 14 PUFF DISK.W.DEV IH SCH ×2 (09:11→21:12)
[2020-01-24] MEDS: NYSTATIN 30 APPL TUBE TP SCH ×2 (09:13→21:12)
--- NOTE | 2020-01-24 11:18 | PN ---
Subjective - Date and Time Seen Date: 01/24/20 Time: 11:06 Subjective Narrative: Patient appears confused, not able to answer questions. Objective Objective Narrative: 79-year-old male admitted for a right femoral neck fracture that occurred after a fall in his home, status post percutaneous fixation of the right femoral neck postop day #2 was evaluated at bedside and was found to be afebrile and in no acute distress. Patient continues to heal from his right femoral neck fracture repair however early this morning before done he developed significant tachycardia so a subsequent EKG was done which revealed atrial fibrillation alternating with atrial flutter flutter. He denies any chest pain and he continues to require oxygen supplementation by [employer]. The patient did not have this arrhythmia yesterday and I am unable to tell if this is new for him or recurrence of a previous arrhythmia, nonetheless he was treated with IV metoprolol which gave slight improvement of his heart rate however he still remains between 130s and 150s. Therefore metoprolol was switched to p.o. form to be administered every 12 hours for rate control. We will keep the patient on international trade manager and watch him closely. - Review of Systems Generalized/Overall Review: Reports: No Symptoms Reported EENTM: Reports: No Symptoms Reported Respiratory: Reports: No Symptoms Reported Cardiac: Reports: No Symptoms Reported Abdominal: Reports: No Symptoms Reported Genitourinary Symptoms: Reports: No Symptoms Reported Musculoskeletal Complaints: Reports: Joint Pain - Right hip pain Neurological: Reports: No Symptoms Reported, Pre-existing Deficit Skin: Reports: No Symptoms Reported Endocrine: Reports: No Symptoms Reported - Vitals Vitals: Last Vital Signs Temp 37.1 C 01/24/20 10:33 Pulse 150 H 01/24/20 10:33 Resp 22 H 01/24/20 10:33 BP 107/54 01/24/20 10:33 Pulse Ox 95 01/24/20 10:33 - Abnormal Lab Findings Abnormal Lab Findings: Abnormal Lab Results 01/24/20 01/24/20 Range/Units 07:12 07:12 WBC 14.9 H (4.0-10.5) K/mm3 RBC 4.17 L (4.7-6.0) M/mm3 Hgb 13.4 L (13.5-18.0) gm/dL Hct 41.0 L (42.0-52.0) % MCH 32.1 H (27-31) pg Immature Gran # (Auto) 0.06 H (0.000-0.0310) K/mm3 Neutrophils % 78.2 H (42-75.0) % Lymphocytes % 6.9 L (20-51) % Eosinophils % 6.0 H (0.0-3.0) % Neutrophils # 11.6 H (1.3-6.0) K/mm3 Lymphocytes # 1.03 L (1.5-3.5) k/mm3 Monocytes # 1.2 H (0.0-1.0) k/mm3 Eosinophils # 0.9 H (0.0-0.7) k/mm3 Sodium 143 H (132-142) mmol/L Plasma Sodium 143 H (130-142) mmol/L Carbon Dioxide 33.6 H (24-32.6) mmol/L BUN 25 H (6-23) mg/dL BUN/Creatinine Ratio 24.0 H (9.0-21.6) Random Glucose 122 H D (70-110) mg/dL Total Bilirubin 1.2 H (0.0-1.1) mg/dL ALT 18 L (19-67) U/L Albumin 2.8 L (3.4-5.0) gm/dl - Exam Constitutional: Present: Alert, Cooperative, Well developed, Well nourished, No distress, Elderly ENT Exam: Present: normal ENT inspection, hard of hearing Neck: Present: non-tender, full range of motion, supple, normal inspection, trachea midline Breasts: Present: Exam deferred Respiratory: Present: chest non-tender, normal breath sounds Cardiovascular/Chest: Present: normal peripheral pulses, no chest tenderness, no edema, no gallop, no JVD, no murmur, no rub, irregularly irregular Abdomen: Present: Normal bowel sounds, soft, nontender, nondistended, no rebound tenderness, no hepatospenomegaly, no masses, obese /Rectal: Present: Exam deferred Extremity: Present: no pedal edema, no calf tenderness, normal capillary refill, pelvis stable, other - Right hip covered by dry dressings Skin Exam: Present: normal color, warm/dry, no cyanosis Lymphatic: Present: no adenopathy Neurologic: Present: no motor/sensory deficits, alert, disoriented x 3 Appearance: Present: appropriate appearance, appropriate insight, impaired insight, impaired recent memory, impaired remote memory Eye contact: Present: cooperative, good eye contact, normal speech, belligerent Thoughts: Present: incoherent Cauti Physician Documentation - Urinary Catheter Management Coude Urethral Indwelling: Yes Reason for Continuing Indwelling Catheter: Not indwelling catheter Date of Insertion: 01/22/20 Time of Insertion: 09:35 Assessment/Plan - Problems/Diagnosis (1) Fall Problem: Acute (2) Hip fracture, right Problem: Acute Qualifiers: Encounter type: initial encounter Fracture type: closed Qualified Code(s): S72.001A - Fracture of unspecified part of neck of right femur, initial encounter for closed fracture (3) On home oxygen therapy Problem: Chronic (4) COPD (chronic obstructive pulmonary disease) Problem: Chronic Qualifiers: COPD type: emphysema Emphysema type: unspecified Qualified Code(s): J43.9 - Emphysema, unspecified (5) Pneumonia Problem: Suspected
[2020-01-24] MEDS: METOPROLOL TARTRATE 50 MG TABLET PO SCH (11:25)
[2020-01-24] MEDS: FUROSEMIDE 10 MG/ML VIAL IV SCH (11:49)
[2020-01-24] MEDS: SENNOSIDES/DOCUSATE SODIUM 1 TAB TABLET PO SCH (21:12)
[2020-01-24] MEDS: MONTELUKAST SODIUM 10 MG TABLET PO SCH (21:12)
[2020-01-24] MEDS: ROSUVASTATIN CALCIUM 10 MG TABLET PO SCH (21:12)
[2020-01-25] MEDS: ALBUTEROL SULFATE/IPRATROPIUM 3 ML NEBU IH SCH ×4 (00:09→16:15)
[2020-01-25] MEDS: METOPROLOL TARTRATE 50 MG TABLET PO SCH ×2 (01:06→11:28)
[2020-01-25 06:13] LABS: Hematocrit 39.2 % (42.0-52.0); Hemoglobin 12.6 gm/dL (13.5-18.0); Mean Corpuscular Hemoglobin 31.8 pg (27-31); Mean Corpuscular Hgb Conc 32.1 g/dl (32-36); Mean Platelet Volume 10.7 fl (8-11.3); Neutrophil # 8.9 K/mm3 (1.3-6.0); Neutrophil % 78.4 % (42-75.0); Platelet Count 261 K/mm3 (150-450); Red Blood Count 3.96 M/mm3 (4.7-6.0); Red Cell Distribution Width 12.9 % (11.5-14.0); White Blood Count 11.4 K/mm3 (4.0-10.5)
[2020-01-25 06:28] LABS: Albumin * 2.7 gm/dl (3.4-5.0); Anion Gap 7.2 mmol/L (6.8-13.8); BUN/Creatinine Ratio 31.3 (9.0-21.6); Bilirubin, Total 0.9 mg/dL (0.0-1.1); Ca. Corrected For Albumin 9.4 mg/dL (8.4-10.2); Calcium * 8.7 mg/dL (7.9-10.9); Carbon Dioxide 35.1 mmol/L (24-32.6); Potassium 3.3 mmol/L (3.4-4.6); Total Protein 6.2 gm/dL (6.2-8.2)
[2020-01-25] MEDS: FLUTICASONE PROPION/SALMETEROL 14 PUFF DISK.W.DEV IH SCH ×2 (09:29→21:19)
[2020-01-25] MEDS: RIVAROXABAN 20 MG TABLET PO SCH (09:30)
[2020-01-25] MEDS: FUROSEMIDE 10 MG/ML VIAL IV SCH (09:30)
[2020-01-25] MEDS: NYSTATIN 30 APPL TUBE TP SCH ×2 (09:37→21:19)
--- NOTE | 2020-01-25 11:00 | PN ---
Subjective - Date and Time Seen Date: 01/25/20 Time: 09:00 Subjective Narrative: Subjective: Reports minimal pain. Was able to take some steps with therapy. Pain is well-controlled. Voiding without any complications. Tolerating by mouth intake. He is up sitting in a chair. Physical exam: Alert and oriented to person Right lower extremity: Palpable dorsalis pedis pulse. Sensation grossly intact to light touch. Dressings clean and dry. Able to flex and extend ankle and toes. No excessive drainage. Calf and thigh are soft and nontender. Assessment: Postop day 3 status post percutaneous fixation of right nondisplaced femoral neck fracture. Plan: Continue with physical and occupational therapy weightbearing as tolerated. Continue with anticoagulation -will need 6 weeks of DVT prophylaxis. 24 hours postoperative prophylactic antibiotics. Pain control with goal to rely on oral medications. Continue bowel regimen. Discharge planning -okay to discharge from an orthopedic standpoint. Keep the wound dry. Cover with dry gauze and tape. Return to clinic in 2 weeks. Continue therapy. Objective - Vitals Vitals: Last Vital Signs Temp 36.8 C 01/25/20 10:48 Pulse 96 01/25/20 10:48 Resp 20 01/25/20 10:48 BP 101/59 01/25/20 10:48 Pulse Ox 97 01/25/20 10:48 - Abnormal Lab Findings Abnormal Lab Findings: Abnormal Lab Results 01/24/20 01/24/20 01/25/20 Range/Units 11:12 11:33 06:00 WBC 11.4 H D (4.0-10.5) K/mm3 RBC 3.96 L (4.7-6.0) M/mm3 Hgb 12.6 L (13.5-18.0) gm/dL Hct 39.2 L (42.0-52.0) % MCH 31.8 H (27-31) pg Neutrophils % 78.4 H (42-75.0) % Lymphocytes % 7.7 L (20-51) % Eosinophils % 5.9 H (0.0-3.0) % Neutrophils # 8.9 H (1.3-6.0) K/mm3 Lymphocytes # 0.87 L (1.5-3.5) k/mm3 pO2 67.6 L (83.0-108.0) mmHg Total CO2 29.2 H (19.0-24.0) mmol/L Base Excess 3.6 H (-2.0-3.0) mmol/L Sodium (132-142) mmol/L Plasma Sodium (130-142) mmol/L Potassium (3.4-4.6) mmol/L Carbon Dioxide (24-32.6) mmol/L BUN (6-23) mg/dL BUN/Creatinine Ratio (9.0-21.6) Random Glucose (70-110) mg/dL B-Natriuretic Peptide 2058 H (5-650) pg/mL Albumin (3.4-5.0) gm/dl 01/25/20 Range/Units 06:05 WBC (4.0-10.5) K/mm3 RBC (4.7-6.0) M/mm3 Hgb (13.5-18.0) gm/dL Hct (42.0-52.0) % MCH (27-31) pg Neutrophils % (42-75.0) % Lymphocytes % (20-51) % Eosinophils % (0.0-3.0) % Neutrophils # (1.3-6.0) K/mm3 Lymphocytes # (1.5-3.5) k/mm3 pO2 (83.0-108.0) mmHg Total CO2 (19.0-24.0) mmol/L Base Excess (-2.0-3.0) mmol/L Sodium 144 H (132-142) mmol/L Plasma Sodium 144 H (130-142) mmol/L Potassium 3.3 L (3.4-4.6) mmol/L Carbon Dioxide 35.1 H (24-32.6) mmol/L BUN 35 H (6-23) mg/dL BUN/Creatinine Ratio 31.3 H (9.0-21.6) Random Glucose 121 H (70-110) mg/dL B-Natriuretic Peptide (5-650) pg/mL Albumin 2.7 L (3.4-5.0) gm/dl Cauti Physician Documentation - Urinary Catheter Management Coude Urethral Indwelling: Yes Date of Insertion: 01/22/20 Time of Insertion: 09:35 Assessment/Plan - Problems/Diagnosis (1) Nondisplaced fracture of neck of right femur Problem: Acute
[2020-01-25] MEDS: SENNOSIDES/DOCUSATE SODIUM 1 TAB TABLET PO SCH (21:19)
[2020-01-25] MEDS: ROSUVASTATIN CALCIUM 10 MG TABLET PO SCH (21:19)
[2020-01-25] MEDS: MONTELUKAST SODIUM 10 MG TABLET PO SCH (21:19)
--- NOTE | 2020-01-25 23:49 | PN ---
Subjective - Date and Time Seen Date: 01/25/20 Time: 16:00 Subjective Narrative: Kali reports no concerns. Pain is controlled. No nausea or vomiting. He is working with PT. He occasionally takes off his oxygen. Objective - Vitals Vitals: Last Vital Signs Temp 37 C 01/25/20 18:07 Pulse 100 01/25/20 18:07 Resp 18 01/25/20 18:07 BP 123/70 01/25/20 18:07 Pulse Ox 96 01/25/20 18:07 - Abnormal Lab Findings Abnormal Lab Findings: Abnormal Lab Results 01/25/20 01/25/20 Range/Units 06:00 06:05 WBC 11.4 H D (4.0-10.5) K/mm3 RBC 3.96 L (4.7-6.0) M/mm3 Hgb 12.6 L (13.5-18.0) gm/dL Hct 39.2 L (42.0-52.0) % MCH 31.8 H (27-31) pg Neutrophils % 78.4 H (42-75.0) % Lymphocytes % 7.7 L (20-51) % Eosinophils % 5.9 H (0.0-3.0) % Neutrophils # 8.9 H (1.3-6.0) K/mm3 Lymphocytes # 0.87 L (1.5-3.5) k/mm3 Sodium 144 H (132-142) mmol/L Plasma Sodium 144 H (130-142) mmol/L Potassium 3.3 L (3.4-4.6) mmol/L Carbon Dioxide 35.1 H (24-32.6) mmol/L BUN 35 H (6-23) mg/dL BUN/Creatinine Ratio 31.3 H (9.0-21.6) Random Glucose 121 H (70-110) mg/dL Albumin 2.7 L (3.4-5.0) gm/dl - Exam Constitutional: Present: Alert, Oriented x3, Cooperative Respiratory: Present: lungs clear, normal breath sounds, no respiratory distress Cardiovascular/Chest: Present: regular rate, rhythm Abdomen: Present: Normal bowel sounds, soft, nontender, nondistended Eye contact: Present: cooperative, good eye contact Thoughts: Present: normal thought pattern, no apparent hallucination Cauti Physician Documentation - Urinary Catheter Management Coude Urethral Indwelling: Yes Date of Insertion: 01/22/20 Time of Insertion: 09:35 Assessment/Plan Plan Narrative: Medically stable and near his baseline. Currently on 4lpm which is near his baseline. Continue PT for strength, may need SNF. - Problems/Diagnosis (1) Hip fracture, right Problem: Acute Qualifiers: Encounter type: initial encounter Fracture type: closed Qualified Code(s): S72.001A - Fracture of unspecified part of neck of right femur, initial encounter for closed fracture (2) Acute and chronic respiratory failure Problem: Acute Qualifiers: Respiratory failure complication: hypoxia Qualified Code(s): J96.21 - Acute and chronic respiratory failure with hypoxia (3) Fall Problem: Acute (4) COPD (chronic obstructive pulmonary disease) Problem: Chronic Qualifiers: COPD type: emphysema Emphysema type: unspecified Qualified Code(s): J43.9 - Emphysema, unspecified
[2020-01-26] MEDS: METOPROLOL TARTRATE 50 MG TABLET PO SCH ×3 (00:04→23:34)
[2020-01-26] MEDS: ALBUTEROL SULFATE/IPRATROPIUM 3 ML NEBU IH SCH ×6 (00:21→23:59)
[2020-01-26] MEDS: FLUTICASONE PROPION/SALMETEROL 14 PUFF DISK.W.DEV IH SCH ×2 (08:13→23:36)
[2020-01-26] MEDS: RIVAROXABAN 20 MG TABLET PO SCH (08:14)
[2020-01-26] MEDS: NYSTATIN 30 APPL TUBE TP SCH ×2 (08:14→20:23)
[2020-01-26] MEDS: FUROSEMIDE 10 MG/ML VIAL IV SCH (08:16)
[2020-01-26] MEDS: ROSUVASTATIN CALCIUM 10 MG TABLET PO SCH (20:23)
[2020-01-26] MEDS: SENNOSIDES/DOCUSATE SODIUM 1 TAB TABLET PO SCH (20:24)
[2020-01-26] MEDS: MONTELUKAST SODIUM 10 MG TABLET PO SCH (20:24)
--- NOTE | 2020-01-26 22:59 | PN ---
Subjective - Date and Time Seen Date: 01/26/20 Time: 11:45 Subjective Narrative: Kali reports doing well. Getting stronger. No difficulty breathing. Pain is controlled. Objective - Vitals Vitals: Last Vital Signs Temp 36.2 C 01/26/20 18:42 Pulse 89 01/26/20 18:42 Resp 16 01/26/20 18:42 BP 122/75 01/26/20 18:42 Pulse Ox 99 01/26/20 18:42 - Exam Constitutional: Present: Alert, Oriented x3, Cooperative, No distress, Other - soft spoken ENT Exam: Present: hearing grossly normal Respiratory: Present: lungs clear, normal breath sounds, no respiratory distress Cardiovascular/Chest: Present: regular rate, rhythm, no murmur Abdomen: Present: Normal bowel sounds, soft, nontender, nondistended Skin Exam: Present: normal color, warm/dry, no cyanosis Cauti Physician Documentation - Urinary Catheter Management Coude Urethral Indwelling: Yes Date of Insertion: 01/22/20 Time of Insertion: 09:35 Assessment/Plan Plan Narrative: Medically doing well, he is back at his baseline oxygen. Plan to discharge to SNF tomorrow. - Problems/Diagnosis (1) Hip fracture, right Problem: Acute Qualifiers: Encounter type: initial encounter Fracture type: closed Qualified Code(s): S72.001A - Fracture of unspecified part of neck of right femur, initial encounter for closed fracture (2) Acute and chronic respiratory failure Problem: Resolved Qualifiers: Respiratory failure complication: hypoxia Qualified Code(s): J96.21 - Acute and chronic respiratory failure with hypoxia (3) Fall Problem: Acute (4) COPD (chronic obstructive pulmonary disease) Problem: Chronic Qualifiers: COPD type: emphysema Emphysema type: unspecified Qualified Code(s): J43.9 - Emphysema, unspecified
[2020-01-27] MEDS: ALBUTEROL SULFATE/IPRATROPIUM 3 ML NEBU IH SCH (06:04)
--- NOTE | 2020-01-27 08:07 | DS ---
(1) Hip fracture, right Problem: Acute Qualifiers: Encounter type: initial encounter Fracture type: closed Qualified Code(s): S72.001A - Fracture of unspecified part of neck of right femur, initial encounter for closed fracture (2) Acute and chronic respiratory failure Problem: Resolved Qualifiers: Respiratory failure complication: hypoxia Qualified Code(s): J96.21 - Acute and chronic respiratory failure with hypoxia (3) Fall Problem: Acute (4) COPD (chronic obstructive pulmonary disease) Problem: Chronic Qualifiers: COPD type: emphysema Emphysema type: unspecified Qualified Code(s): J43.9 - Emphysema, unspecified Date of Discharge:: 01/27/20 Hospital Course: Kali is an 79 yo male that fell on the stairs and had a right hip fracture. He presented to the [facility] ER who discussed his fracture with ortho and he was deemed a surgical candidate. He was admitted and medically cleared for surgery. Initially he had acute on chronic respiratory failure that I believe was secondary to atelectasis and potentially pain medication suppressing respiratory drive. He overall did well and had no complication with surgery. He was gradually weaned from the increased oxygen flow back to his baseline of 3lpm that he uses for chronic respiratory failure from COPD. He will be discharged to SNF today. Procedures Performed: see notes below List Procedures: Percutaneous fixation right nondisplaced femoral neck fracture Results and Findings: Lab Pending Results 01/21/20 14:20: Troponin I Less than 0.017 01/21/20 14:20: B-Natriuretic Peptide 273 01/21/20 14:21: WBC 7.7, RBC 4.45 L, Hgb 14.1, Hct 43.0, MCV 96.6, MCH 31.7 H, MCHC 32.8, RDW 12.9, Plt Count 280, MPV 10.2, Immature Gran % (Auto) 0.30, Immature Gran # (Auto) 0.02, Neutrophils % 80.7 H, Lymphocytes % 8.8 L, Mo nocytes % 7.1, Eosinophils % 2.7, Basophils % 0.4, Nucleated RBC % 0.0, Neutrophils # 6.2 H, Lymphocytes # 0.68 L, Monocytes # 0.6, Eosinophils # 0.2, Absolute Basophils 0.0 01/21/20 14:21: PT 10.6, INR (Anticoag Therapy) 1.07, PTT ([place]) 27.5 01/21/20 14:21: Sodium 141, Plasma Sodium 141, Potassium 3.6, Chloride 106, Carbon Dioxide 31.7, Anion Gap 6.9, BUN 12, Creatinine 0.86, Est GFR (Non-Af Amer) 91, BUN/Creatinine Ratio 14.0, Random Glucose 103, Calcium 9.1, Calcium Adj for Albumin 9.3, Total Bilirubin 1.0, AST 23, ALT 25, Alkaline Phosphatase 143, Total Protein 6.8, Albumin 3.4 01/21/20 15:00: SARS-CoV-2 (PCR) Not detected 01/21/20 16:12: Urine Color Dark yellow, Urine Appearance Clear, Urine pH 6.0, Ur Specific [place] 1.025, Urine Protein Negative, Urine Glucose (UA) Negative, Urine Ketones Negative, Urine Blood Negative, Urine Nitrate Negative, Urine Bilirubin 1 H, Urine Ictotest Negative, Urine Urobilinogen Normal, Ur Leukocyte Esterase Negative, Urine RBC Trace, Urine WBC Trace, Ur Epithelial Cells Trace, Urine Bacteria 1+ H, Urine Mucus Few - 1+ H, Urine Culture Comments No culture indicated 01/21/20 16:45: pCO2 54.7 H, pO2 56.9 L, HCO3 28.7 H, Total CO2 30.4 H, Base Excess 1.6, ABG pH 7.34 L, ABG O2 Sat (Measured) 87.4 L 01/22/20 05:10: WBC 19.7 H D, RBC 4.93, Hgb 15.7, Hct 48.4, MCV 98.2, MCH 31.8 H, MCHC 32.4, RDW 12.9, Plt Count 200, MPV 11.4 H, Immature Gran % (Auto) 0.30, Immature Gran # (Auto) 0.06 H, Neutrophils % 87.5 H, Lymphocytes % 4.8 L, Monocytes % 5.0, Eosinophils % 2.0, Basophils % 0.4, Nucleated RBC % 0.0, Neutrophils # 17.3 H, Lymphocytes # 0.95 L, Monocytes # 1.0, Eosinophils # 0.4, Absolute Basophils 0.1 01/22/20 05:10: Sodium 141, Plasma Sodium 142, Potassium 4.0, Chloride 106, Carbon Dioxide 30.4, Anion Gap 8.6, BUN 15, Creatinine 1.07, Est GFR (Non-Af Amer) 71 D, BUN/Creatinine Ratio 14.0, Random Glucose 137 H D, Calcium 9.0, Calcium Adj for Albumin 9.3, Total Bilirubin 1.4 H, AST 23, ALT 26, Alkaline Phosphatase 148, Total Protein 7.0, Albumin 3.2 L 01/22/20 09:35: pCO2 38.1, pO2 55.3 L, HCO3 25.0, Total CO2 26.2 H, Base Excess 1.0, ABG pH 7.44, ABG O2 Sat (Measured) 89.9 L 01/23/20 05:20: WBC 16.5 H, RBC 4.00 L, Hgb 12.9 L, Hct 39.4 L, MCV 98.5, MCH 32.3 H, MCHC 32.7, RDW 12.9, Plt Count 229, MPV 10.3, Immature Gran % (Auto) 0.30, Immature Gran # (Auto) 0.05 H, Neutrophils % 87.0 H, Lymphocytes % 3.9 L, Monocytes % 6.1, Eosinophils % 2.4, Basophils % 0.3, Nucleated RBC % 0.0, Neutrophils # 14.3 H, Lymphocytes # 0.64 L, Monocytes # 1.0, Eosinophils # 0.4, Absolute Basophils 0.1 01/23/20 05:20: Sodium 135, Plasma Sodium 139, Potassium 3.5, Chloride 99, Carbon Dioxide 32.3, Anion Gap 7.2, BUN 20, Creatinine 1.23, Est GFR (Non-Af Amer) 60, BUN/Creatinine Ratio 16.3, Random Glucose 327 H D, Calcium 8.2, Calcium Adj for Albumin 8.9, Total Bilirubin 1.1, AST 20, ALT 18 L, Alkaline Phosphatase 118, Total Protein 6.1 L, Albumin 2.7 L 01/24/20 07:12: WBC 14.9 H, RBC 4.17 L, Hgb 13.4 L, Hct 41.0 L, MCV 98.3, MCH 32.1 H, MCHC 32.7, RDW 13.0, Plt Count 248, MPV 11.0, Immature Gran % (Auto) 0.40, Immature Gran # (Auto) 0.06 H, Neutrophils % 78.2 H, Lymphocytes % 6.9 L, Monocytes % 8.2, Eosinophils % 6.0 H, Basophils % 0.3, Nucleated RBC % 0.0, Neutrophils # 11.6 H, Lymphocytes # 1.03 L, Monocytes # 1.2 H, Eosinophils # 0.9 H, Absolute Basophils 0.1 01/24/20 07:12: Sodium 143 H, Plasma Sodium 143 H, Potassium 3.7, Chloride 106, Carbon Dioxide 33.6 H, Anion Gap 7.1, BUN 25 H, Creatinine 1.04, Est GFR (Non-Af Amer) 73 D, BUN/Creatinine Ratio 24.0 H, Random Glucose 122 H D, Calcium 9.0, Calcium Adj for Albumin 9.6, Total Bilirubin 1.2 H, AST 20, ALT 18 L, Alkaline Phosphatase 118, Total Protein 6.6, Albumin 2.8 L 01/24/20 11:12: pCO2 41.2, pO2 67.6 L, HCO3 27.9, Total CO2 29.2 H, Base Excess 3.6 H, ABG pH 7.45, ABG O2 Sat (Measured) 94.2 01/24/20 11:33: B-Natriuretic Peptide 2057 H 01/25/20 06:00: WBC 11.4 H D, RBC 3.96 L, Hgb 12.6 L, Hct 39.2 L, MCV 99.0, MCH 31.8 H, MCHC 32.1, RDW 12.9, Plt Count 261, MPV 10.7, Immature Gran % (Auto) 0.20, Immature Gran # (Auto) 0.02, Neutrophils % 78.4 H, Lymphocytes % 7.7 L, Monocytes % 7.3, Eosinophils % 5.9 H, Basophils % 0.5, Nucleated RBC % 0.0, Neutrophils # 8.9 H, Lymphocytes # 0.87 L, Monocytes # 0.8, Eosinophils # 0.7, Absolute Basophils 0.1 01/25/20 06:05: Sodium 144 H, Plasma Sodium 144 H, Potassium 3.3 L, Chloride 105, Carbon Dioxide 35.1 H, Anion Gap 7.2, BUN 35 H, Creatinine 1.12, Est GFR (Non-Af Amer) 67, BUN/Creatinine Ratio 31.3 H, Random Glucose 121 H, Calcium 8.7, Calcium Adj for Albumin 9.4, Total Bilirubin 0.9, AST 37, ALT 27, Alkaline Phosphatase 115, Total Protein 6.2, Albumin 2.7 L Discharge Location: [facility] Disposition: SNF Condition: Fair Level of Care: SNF Discharge Activity: Activity as tolerated Discharge Diet: General/regular food Custodial Therapy: Physical Therapy, Occupation Therapy, Speech Therapy Referrals: Anne-Marie Larios MD [Primary Care Provider] - Emilio Stevens MD [Staff Physician] - Two Weeks Problem Oriented Discharge Instructions to Patient/Family: Hip Fracture Additional Patient Instructions (free text): Discharge to [facility] in [place] with PT, OT and ST. Please call and fax discharge information to them and to PCP Anne-Marie Larios. Follow up [facility] Orthopedic office visit on SaturdayFebruary 08 at 12:45pm. Ortho Instructions: Keep the Incision clean and dry. Cover with dry gauze and tape. Continue with physical and occupational therapy weight bearing as tolerated. Continue with anticoagulation -will need 6 weeks of DVT prophylaxis. Prescriptions (Any new or edited meds): HYDROcodone/ACETAMINOPHEN [[place] 5-325] 1 ea PO Q3H PRN #60 tab PRN Reason: Moderate Pain (Pain Scale 4-6) Transmission Status: Received by [facility] Rivaroxaban [Xarelto] 10 mg PO DAILY #40 tab Transmission Status: Pending to [facility] Complete Home Medications List: Complete Home Medication List: Atorvastatin Calcium [Lipitor] 20 mg PO DAILY 01/22/20 Cetirizine HCl 10 mg PO DAILY PRN 01/22/20 Fluticasone/Vilanterol [Breo Ellipta 200-25 Mcg INH] 1 ea IH DAILY 01/22/20 Montelukast Sodium 10 mg PO HS 01/22/20 Nystatin [Mycostatin Cream] 30 gm TP BID 01/22/20 Triamcinolone Acetonide 15 gm TP BID 01/22/20 Umeclidinium [place] [Incruse Ellipta] 62.5 mcg IH DAILY 01/22/20 Acetaminophen [Tylenol] 1,000 mg PO Q6H PRN tablet 01/27/20 HYDROcodone/ACETAMINOPHEN [[place] 5-325] 1 ea PO Q3H PRN #60 tab 01/27/20 Mag Hydrox/Aluminum Hyd/Simeth [Maalox Plus Suspension] 30 ml PO Q6H PRN udc 01/27/20 Magnesium Hydroxide [Milk Of Magnesia] 30 ml PO DAILY PRN udc 01/27/20 Rivaroxaban [Xarelto] 10 mg PO DAILY #40 tab 01/27/20 Sennosides/Docusate Sodium [Senokot-S] 2 tab PO HS tablet 01/27/20 Forms: Patient Portal Registration
[2020-01-27] MEDS: FUROSEMIDE 10 MG/ML VIAL IV SCH (08:56)
[2020-01-27] MEDS: RIVAROXABAN 20 MG TABLET PO SCH (08:57)
[2020-01-27] MEDS: NYSTATIN 30 APPL TUBE TP SCH (08:57)
[2020-01-27] MEDS: METOPROLOL TARTRATE 50 MG TABLET PO SCH (10:53)
[2020-01-27] MEDS: ACETAMINOPHEN 500 MG TABLET PO PRN (10:53)
[2020-01-27] MEDS: FLUTICASONE PROPION/SALMETEROL 14 PUFF DISK.W.DEV IH SCH (10:54)
[2020-01-27 12:41] VITALS: BP 114/63
== END 2020-01-27 12:32 | DRG 480 ==
LOC: ER 13:28 → MS 17:09
PROVIDERS: ADMIT Family Medicine; ATTEND Family Medicine
DX: J96.21 Acute and chronic respiratory failure with hypoxia; Z99.81 Dependence on supplemental oxygen; S72.091A Other fracture of head and neck of right femur, initial encounter for closed fracture; I50.9 Heart failure, unspecified; J43.9 Emphysema, unspecified; M25.521 Pain in right elbow; W10.8XXA Fall (on) (from) other stairs and steps, initial encounter